=== PATIENT | female | born 2000 | race American Indian/Alaskan Native ===

== ENCOUNTER 2022-04-16 11:52 | Inpatient (IN) | payer MEDICAID ==
--- NOTE | 2022-04-16 12:12 | History and Physical Report ---
History of Present Illness Date of examination: 04/16/22 Date of admission: 04/16/22 Chief complaint: nausea and vomiting History of present illness: Pt unable to keep foods down with several episodes of emesis about 6 to 7 times per day. States that meds given have not been working. Pt states she is sure of lmp today and this gives edc 11/18/22 and EGA of 9 1/7 wks. Pt advised that due to weight loss and continued n/v she will need admission for obs and treatment of hyperemesis. Pt expressed understanding and all questions were addressed and answered. Past History : 3 Living Children: 1 Elect. Ab: 1 # 1 Delivery date: 11/27/2020 Weeks Gestation: 36.6 labor: yes Delivery type: Hours of labor: 4 Anesthesia type: epidural Delivery location: [facility] Inf[facility] Sex: Male weight: 6lb 6oz # 2 Delivery date: 09/2021 Weeks Gestation: 6 Delivery type: EAB Comments: Medical Past Medical History: Reviewed and updated today: Anemia Sickle Cell trait Past Surgical History: Reviewed and updated today: Negative General Comments - FH: Mother- sickle cell trait, anemia Risk Factors: Smoked Tobacco Use: Never smoker Smokeless Tobacco Use: Never Passive Smoke Exposure: no HIV High Risk Behavior: no Exercise: no Seatbelt Use: 100 % PAP Smear History: Date of Last PAP Smear: 09/22/2021 Results: Normal Alcohol Use: no Drug Use: yes Drug of Choice: marijuana Past Medical History Anesthesia Complications: negative Anemia: positive Autoimmune Disorder: negative Bleeding Disorder: negative Blood Transfusions: negative Breast Disease: negative Diabetes: negative Heart Disease: negative Hypertension: negative Hepatitis/Liver Disease: negative Kidney Disease/UTI: negative Neurologic/Epilepsy/Migraines: negative Phlebitis/Varicosities: negative Psychiatric: negative Pulmonary Disease/Asthma: negative Thyroid Disease: negative Hospitalizations: negative Surgery (Non-urogynaecologist): Negative Family Hx: Mother- sickle cell trait, anemia Infection History HIV Risk Eval: no Genetic History Congenital Heart Defect: Mom: no Kael Disease: Mom: no Thalassemia Mom: no Neural Tube Defect Mom: no Down's Syndrome Mom: no Russel-Sachs Mom: no Sickle Cell Disease/Trait Mom: yes Hemophilia Mom: no Muscular Dystrophy Mom: no Cystic Fibrosis Mom: no Pily Chorea Mom: no Mental Retardation Mom: no Fragile X Mom: no Other Genetic/Chromosomal Disorder Mom: no Child w/other defect Mom: no Enviromental Exposures Xray Exposure: no Medication, drug, or alcohol use since LMP: no Chemical/Other Exposure: no Exposure to Cat Liter: no Hx of Parvovirus (Fifth Disease): no Active Medications (reviewed today): promethazine unspecified unspecified (promethazine) Current Allergies: No known allergies Past History Past Medical History: other (see hpi) Past Surgical History: other (see hpi) 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 Negative: distention, tenderness, guarding Extremities: Negative: tenderness, edema Deep Tendon Reflex Grade: Normal +2 Results All other labs normal. Assessment and Plan - Patient Problems (1) 9 weeks gestation of Status: Acute (2) Hyperemesis Status: Acute Plan to address problem: -admit -hyperemesis protocol.
[2022-04-16] MEDS ORDERED: ONDANSETRON 4 MG/2 ML INJ IV PRN (13:35)
[2022-04-16] MEDS ORDERED: D5W/LACTATED RINGERS 1,000 ML IV SCH ×2 (14:00→15:00)
[2022-04-16] MEDS ORDERED: MULTIPLE VITAMIN INJ, ADULT 10 ML in D5W/LACTATED RINGERS 1,000 ML IV ONE (15:35)
--- NOTE | 2022-04-16 16:14 | Ultrasound Report ---
ULTRASOUND OBSTETRIC INDICATION / CLINICAL INFORMATION: dating sonogram/HYPEREMESIS. Clinical Gestational Age (GA) in weeks, days: 9 weeks 1 day TECHNIQUE: Transabdominal. COMPARISON: None available. FINDINGS: GESTATIONAL SAC: Well-defined oval shape and intrauterine in location. YOLK SAC: No significant abnormality. EMBRYO/FETUS: No significant abnormality. - Colwell-Rump Length = 1.7 cm = 8.1 weeks.days - Heart Rate, beats per minute (if present) = 212 bpm ADNEXA: No significant abnormality. FREE FLUID: None. ADDITIONAL FINDINGS: None. IMPRESSION: 1. Single, living intrauterine with estimated sonographic age of 8.1 weeks.days. 2. Elevated heart rate measuring 212 bpm. Scribed by: Alba Guzman RDMS, RVT, MARION Scribed: 04/16/2022 2:36 PM I have reviewed the images, agree with this report, and edited this report as needed. Signer Name: Surendra Villalpando MD Signed: 04/16/2022 4:10 PM Workstation Name: [id number]
[2022-04-16] MEDS: PROMETHAZINE 25 MG RECT SUPP PR SCH (17:00)
[2022-04-16 18:22] LABS: Basophils # (Auto) 0.1 K/mm3 (0.0-0.1); Basophils % (Auto) 0.4 % (0.0-1.8); Eosinophils # (Auto) 0.1 K/mm3 (0.0-0.4); Eosinophils % (Auto) 0.5 % (0.0-4.3); Hematocrit 34.4 % (30.3-42.9); Hemoglobin 11.2 gm/dl (10.1-14.3); Lymphocytes # (Auto) 2.3 K/mm3 (1.2-5.4); Lymphocytes % (Auto) 18.4 % (13.4-35.0); Mean Corpuscular HGB Conc 33 % (30-34); Mean Corpuscular Volume 81 fl (79-97); Monocytes # (Auto) 0.7 K/mm3 (0.0-0.8); Monocytes % (Auto) 5.8 % (0.0-7.3); Platelet Count 225 K/mm3 (140-440); Red Blood Count 4.23 M/mm3 (3.65-5.03); Red Cell Distribution Width 13.6 % (13.2-15.2)
[2022-04-16] MEDS: METOCLOPRAMIDE 10 MG/2 ML INJ IV SCH (18:25)
[2022-04-16 18:39] LABS: Blood Urea Nitrogen 4 mg/dL (7-17); Calcium 9.4 mg/dL (8.4-10.2); Hemolysis Index 9
[2022-04-16 18:45] LABS: Color,Urine Yellow (Yellow)
[2022-04-16 18:55] LABS: BUN/Creatinine Ratio 10
[2022-04-16 18:55] LABS: Mucus,Urine 1+ /HPF
[2022-04-17] MEDS: METOCLOPRAMIDE 10 MG/2 ML INJ IV SCH ×3 (00:06→12:43)
[2022-04-17] MEDS: PROMETHAZINE 25 MG RECT SUPP PR SCH ×3 (00:06→11:21)
--- NOTE | 2022-04-17 07:45 | Progress Note ---
Assessment and Plan Patient tolerating GI soft diet, denies n/v, plan for labs at noon and will reassess disposition at that time. - Patient Problems (1) Hyperemesis Current Visit: No Status: Acute Subjective - Subjective Date of service: 04/17/22 Principal diagnosis: IUP at 9 weeks; hyperemesis Patient reports: appetite normal, voiding normally Objective - Vital Signs Latest vital signs: Vital Signs Temp Pulse Resp BP BP Pulse Ox 04/17/22 05:08 98.5 F 72 20 103/64 99 04/17/22 01:03 98.5 F 70 18 111/67 100 04/16/22 22:00 100 04/16/22 20:40 98.7 F 72 20 106/76 100 04/16/22 15:55 100 04/16/22 15:30 98.3 F 85 20 125/78 100 Intake and Output 04/16/22 04/16/22 04/17/22 15:59 23:59 07:59 Intake Total 360 240 Output Total 850 400 Balance -490 -160 Intake: Oral 120 Intake, Free Water 240 240 Output: Urine 750 400 Void 750 400 Emesis 100 Other: Total, Intake Amount 120 Total, Output Amount 200 400 Voiding Method Toilet # Voids Void 1 1 Weight 66.678 kg 68.3 kg Patient Weight 04/17/22 23:59 Weight 68.3 kg - Exam Narrative Exam: Pt stable, reports able to tolerate food and liquids without n/v. Pt desires discharge today. Breasts: Present: normal Abdomen: Present: normal appearance, soft, normal bowel sounds Uterus: Present: normal - Labs Labs: Abnormal lab results 04/16/22 04/16/22 04/16/22 Range/Units 17:53 17:53 17:53 WBC 12.7 H (4.5-11.0) K/mm3 MCH 27 L (28-32) pg Seg Neutrophils % 74.9 H (40.0-70.0) % Seg Neutrophils # 9.5 H (1.8-7.7) K/mm3 Sodium 134 L (137-145) mmol/L BUN 4 L (7-17) mg/dL Creatinine 0.4 L (0.6-1.2) mg/dL Glucose 167 H (65-100) mg/dL TSH 0.009 L (0.270-4.200) mlU/mL Urine WBC (Auto) (0.0-6.0) /HPF 04/16/22 Range/Units Unknown WBC (4.5-11.0) K/mm3 MCH (28-32) pg Seg Neutrophils % (40.0-70.0) % Seg Neutrophils # (1.8-7.7) K/mm3 Sodium (137-145) mmol/L BUN (7-17) mg/dL Creatinine (0.6-1.2) mg/dL Glucose (65-100) mg/dL TSH (0.270-4.200) mlU/mL Urine WBC (Auto) 11.0 H (0.0-6.0) /HPF
[2022-04-17] MEDS ORDERED: PRENATAL VIT27-FE FUMARATE-FOLIC ACID VIT TAB PO SCH (10:00)
[2022-04-17 12:01] LABS: Free T4 (Free Thyroxine) 1.88 ng/dL (0.76-1.46)
[2022-04-17 12:14] VITALS: BP 109/62
--- NOTE | 2022-04-17 14:13 | Discharge Summary ---
Providers - Providers Date of Admission: 04/16/22 13:53 Date of discharge: 04/17/22 (pt unable to stay, desires d/c home) Attending physician: GAURI RICE 04/16/22 13:37 Consult to Dietitian/Nutrition [CONS] Routine Physician Instructions: Reason For Exam: Reason for Consult: hyper grav Reason for Consult: Poor oral intake Primary care physician: GAURI RICE Hospitalization Reason for admission: other (hyperemesis) Discharge diagnosis: other (IUP @ 9wks, hyperemesis) Pertinent studies: TSH 0.007, free t4 1.88 Condition at discharge: Good Disposition: 01 HOME / SELF CARE / HOMELESS - Discharge Diagnoses (1) Hyperemesis Status: Acute Plan - Discharge Medications Prescriptions: Metoclopramide [Reglan] 10 mg PO TID #30 tab - Provider Discharge Summary Diet: routine Instructions: routine Additional instructions: [] Smoking cessation referral if applicable(refer to patient education folder for contact #) [] Refer to [facility]'s [facility] Booklet Call your doctor immediately for: * Fever > 100.5 * Heavy vaginal bleeding ( >1 pad per hour) * Severe persistent headache * Shortness of breath * Reddened, hot, painful area to leg or breast * Drainage or odor from incision. * Keep incision clean and dry at all times and follow doctor's instructions regarding bathing/showering - Follow up plan Follow up: GAURI RICE MD [Primary Care Provider] - 04/20/22 10:00 am
== END 2022-04-17 14:40 | disposition home or self-care (01) | DRG 781 ==
LOC: UNDOADMIN 11:52 → 3A 11:52 → OB 13:53
PROVIDERS: ADMIT Obstetrics & Gynecology; ATTEND Obstetrics & Gynecology
DX: O21.0 Mild hyperemesis gravidarum (principal); Z3A.09 9 weeks gestation of pregnancy; Z20.822 Contact with and (suspected) exposure to COVID-19
CPT/HCPCS: 36415; 76801; 80048; 81001; 82010; 82150; 83690; 84439; 84443; 85025; 87086; G0378; J7060; J2765; J7121; U0003